=== PATIENT | female | born 1970 | race Caucasian/White ===

== ENCOUNTER 2017-12-27 07:09 | Day surgery (SDC) | payer OTHER ==
[~2017-12-27] VITALS: Ht 162.6 cm; Wt 82.0 kg
[~2017-12-27 07:09] MED LIST: SODIUM CHLORIDE 0.9% 1,000 ML IV ONE
[2017-12-27] MEDS ORDERED: LIDOCAINE 4% 50 ML SOLUTION TP ONE (07:10)
[2017-12-27] MEDS ORDERED: BENZOCAINE 20% 50 MCG/SPRAY 57 GM TP ONE (07:10)
[2017-12-27] MEDS ORDERED: LIDOCAINE 2% 30 ML JELLY TP ONE (07:10)
[2017-12-27] MEDS ORDERED: MIDAZOLAM HCL 2 MG/2 ML VIAL ONE (09:03)
[2017-12-27] MEDS ORDERED: FentaNYL CITRATE-PF 100 MCG/2 ML VIAL ONE (09:03)
[2017-12-27] MEDS ORDERED: MethylPREDNISolone SOD SUCC 125 MG/2 ML VIAL IVP ONE (09:15)
[2017-12-27] MEDS ORDERED: MethylPREDNISolone SOD SUCC 125 MG/2 ML VIAL ONE (09:35)
[2017-12-27] MEDS ORDERED: OXYGEN THERAPY IH SCH (20:00)
== END 2017-12-27 10:45 | disposition home or self-care (01) ==
LOC: SURGERY 07:09
PROVIDERS: ATTEND Internal Medicine Critical Care Medicine
DX: J38.4 Edema of larynx (principal); B37.0 Candidal stomatitis; J84.111 Idiopathic interstitial pneumonia, not otherwise specified; J98.09 Other diseases of bronchus, not elsewhere classified; J45.998 Other asthma; E05.90 Thyrotoxicosis, unspecified without thyrotoxic crisis or storm; F32.9 Major depressive disorder, single episode, unspecified; Z72.89 Other problems related to lifestyle; Z87.01 Personal history of pneumonia (recurrent); Z86.11 Personal history of tuberculosis; Z90.710 Acquired absence of both cervix and uterus; Z98.890 Other specified postprocedural states; Z79.899 Other long term (current) drug therapy; Z88.8 Allergy status to other drugs, medicaments and biological substances
CPT/HCPCS: 31623; 31624; 71045; 87070; 87205; 87206; 87220; J2250; J2930; J3010; J7030; 87015; 88108; 88312; 88342

== ENCOUNTER 2020-07-01 06:47 | Day surgery (SDC) | payer OTHER ==
[2020-06-29 12:39] LABS: COVID AG,FIA SOURCE NASOPHARYNGEAL
[~2020-07-01] VITALS: Ht 162.6 cm; Wt 65.0 kg
[~2020-07-01 06:47] MED LIST changes: +GABA-1181 PO; +MELA5TAB3 PO; +PRED-409 PO; +SODIUM CHLORIDE 0.9% 1,000 ML ONE; +SUMA25TA9 PO
[2020-07-01] MEDS ORDERED: LIDOCAINE 4% 50 ML SOLUTION TP ONE (06:48)
[2020-07-01] MEDS ORDERED: ALBUTEROL SULFATE 2.5 MG/0.5 ML NEB SOLUTION NEB ONE (06:48)
[2020-07-01] MEDS ORDERED: BENZOCAINE 20% 50 MCG/SPRAY 57 GM TP ONE (06:48)
[2020-07-01] MEDS ORDERED: LIDOCAINE 2% 30 ML JELLY TP ONE (06:48)
[2020-07-01] MEDS ORDERED: FentaNYL CITRATE PF 100 MCG/2 ML VIAL ONE (07:31)
[2020-07-01] MEDS ORDERED: MIDAZOLAM HCL 2 MG/2 ML VIAL ONE (07:31)
[2020-07-01] MEDS ORDERED: MethylPREDNISolone SOD SUCC 125 MG/2 ML VIAL IVP ONE (09:15)
[2020-07-01] MEDS ORDERED: MethylPREDNISolone SOD SUCC 125 MG/2 ML VIAL ONE (09:41)
[2020-07-01 10:13] LABS: GLUCOMETER DEV NAME(LOC) SDS.; GLUCOSE,POINT OF CARE 125 MG/DL (70-110)
[2020-07-01] MEDS ORDERED: NALOXONE HCL 0.4 MG/ML VIAL ONE (11:15)
[2020-07-01] MEDS ORDERED: FLUMAZENIL 0.1 MG/ML 5 ML VIAL IVP ONE (11:15)
[2020-07-01] MEDS ORDERED: DiphenhydrAMINE HCL 50 MG/ML VIAL ONE (11:15)
[2020-07-01] MEDS ORDERED: OXYGEN THERAPY IH SCH (20:00)
[2020-07-02] MEDS ORDERED: PRED20 PO (14:42)
== END 2020-07-01 10:14 | disposition admitted as inpatient to this hospital (09) ==
LOC: SURGERY 06:47
PROVIDERS: ATTEND Internal Medicine Critical Care Medicine
DX: B37.0 Candidal stomatitis (principal); T78.3XXA Angioneurotic edema, initial encounter; Z20.822 Contact with and (suspected) exposure to COVID-19; G43.909 Migraine, unspecified, not intractable, without status migrainosus; Y83.8 Other surgical procedures as the cause of abnormal reaction of the patient, or of later complication, without mention of misadventure at the time of the procedure; Z98.890 Other specified postprocedural states; Z90.49 Acquired absence of other specified parts of digestive tract; Z88.8 Allergy status to other drugs, medicaments and biological substances; Z87.01 Personal history of pneumonia (recurrent); Z86.73 Personal history of transient ischemic attack (TIA), and cerebral infarction without residual deficits; Z86.718 Personal history of other venous thrombosis and embolism
CPT/HCPCS: 31623; 31624; 82962; 87015; 87070; 87101; 87205; 87206; 87220; 87426; 88108; 88184; 88185; 88312; 93005; C9803; J1200; J2250; J2310; J2930; J3010; J3490; J7030; J7613; Z7610